=== PATIENT | female | born 1975 | race Caucasian/White ===

== ENCOUNTER 2023-03-30 13:03 | Outpatient (RCR) | payer BC, SELFPAY | END 2023-03-30 23:59 | disposition home or self-care (01) | LOC: ROT 13:03 | PROVIDERS: ATTENDING PHYSICIAN Surgery; FAMILY PHYSICIAN Registered Nurse | DX: R20.0 Anesthesia of skin (principal); R20.2 Paresthesia of skin (principal) | CPT/HCPCS: 97110; 97140; 97166; 97535 ==

== ENCOUNTER 2023-05-01 10:15 | Outpatient (RCR) | payer BC, SELFPAY | END 2023-05-01 23:59 | disposition home or self-care (01) | LOC: ROT 10:15 | PROVIDERS: ATTENDING PHYSICIAN Surgery; FAMILY PHYSICIAN Registered Nurse; REFERRING PHYSICIAN Orthopaedic Surgery Hand Surgery | DX: Z47.89 Encounter for other orthopedic aftercare (principal); R20.0 Anesthesia of skin; R20.2 Paresthesia of skin; Z73.6 Limitation of activities due to disability | CPT/HCPCS: 97010; 97110; 97530 ==

== ENCOUNTER → 2023-05-01 12:51 | Outpatient (REF) | payer BC, SELFPAY | LOC: HWEVLT 12:51 | PROVIDERS: ATTENDING PHYSICIAN Radiology Diagnostic Radiology | DX: I83.893 Varicose veins of bilateral lower extremities with other complications (principal) | CPT/HCPCS: 93970 ==

== ENCOUNTER 2023-05-18 10:02 | Outpatient (RCR) | payer BC, SELFPAY | END 2023-05-18 23:59 | disposition home or self-care (01) | LOC: ROT 10:02 | PROVIDERS: ATTENDING PHYSICIAN Orthopaedic Surgery Hand Surgery; FAMILY PHYSICIAN Registered Nurse | DX: M25.531 Pain in right wrist (principal); Z73.6 Limitation of activities due to disability; R20.2 Paresthesia of skin | CPT/HCPCS: 97110; 97166; 97530; 97535 ==

== ENCOUNTER → 2023-06-06 08:01 | Outpatient (REF) | payer BC, SELFPAY | LOC: HWEVLT 08:01 | PROVIDERS: ATTENDING PHYSICIAN Radiology Vascular & Interventional Radiology | DX: I83.892 Varicose veins of left lower extremity with other complications (principal) | CPT/HCPCS: 36478; C1769 ==

== ENCOUNTER 2023-06-08 13:51 | Outpatient (RCR) | payer BC, SELFPAY | END 2023-06-08 23:59 | disposition home or self-care (01) | LOC: ROT 13:51 | PROVIDERS: ATTENDING PHYSICIAN Orthopaedic Surgery Hand Surgery | DX: M25.531 Pain in right wrist (principal); Z73.6 Limitation of activities due to disability | CPT/HCPCS: 97110; 97530; 97535 ==

== ENCOUNTER → 2023-06-21 11:32 | Outpatient (REF) | payer BC, SELFPAY | LOC: HWEVLT 11:32 | PROVIDERS: ATTENDING PHYSICIAN Radiology Vascular & Interventional Radiology | DX: I83.892 Varicose veins of left lower extremity with other complications (principal) | CPT/HCPCS: 93971 ==